=== PATIENT | male | born 1985 | race Hispanic/Latino ===

== ENCOUNTER → 2020-01-16 | Outpatient (CLI) | payer BC ==
--- NOTE | 2020-01-16 14:51 | Diagnostic Imaging Report ---
EXAM: Gallbladder Ultrasound INDICATION: ^[id number] ^[id number] ^RUQ PAIN COMPARISON: None. TECHNIQUE: Transverse and longitudinal images of the gallbladder were obtained. FINDINGS: Liver: 15.2 cm in length at the costal margin, normal. Normal echogenicity. No discrete mass. Gallbladder: Stones/Sludge: None Wall: 0.2 cm Appearance: No wall thickening, pericholecystic fluid or hydrops. Sonographic Norman's Sign: Negative Bile Ducts: Intrahepatic Ducts: No dilatation Extrahepatic Ducts: Common bile duct measures 0.3 cm, no dilatation Free Fluid: No ascites or pleural effusion Vessels: The IVC and aorta are poorly visualized due to overlying bowel gas. IMPRESSION: Unremarkable right upper quadrant abdominal ultrasound. Signed by: Vincent Wilson MD on 01/16/2020 2:48 PM
== END ==
LOC: US 12:43
PROVIDERS: ATTEND Family Medicine
DX: R10.11 Right upper quadrant pain (principal)
CPT/HCPCS: 76705

== ENCOUNTER 2022-06-01 07:12 | Observation (INO) | payer BC, OTHER ==
[2022-05-30 12:54] LABS: BASOPHILS # (AUTO) 0.1 (0.0-0.1); BASOPHILS % 0.7 % (0.0-1.0); EOSINOPHILS # (AUTO) 0.1 (0.0-0.4); EOSINOPHILS % 1.5 % (0.0-6.0); HEMATOCRIT 42.3 % (38.2-49.6); LYMPHOCYTES # (AUTO) 1.1 (1.0-3.2); LYMPHOCYTES % 15.8 % (18.0-39.1); MEAN CORPUSCULAR HEMOGLOBIN 31.1 pg (28-32); MEAN CORPUSCULAR HGB CONC 33.1 g/dL (31-35); MONOCYTES # (AUTO) 0.2 (0.2-0.8); MONOCYTES % 3.5 % (4.4-11.3); NEUTROPHILS # (AUTO) 5.3 (2.1-6.9); NEUTROPHILS % 77.9 % (38.7-80.0); PLATELET COUNT 260 x10e3/uL (140-360); RED CELL DISTRIBUTION WIDTH 12.9 % (11.7-14.4)
[2022-05-30 13:06] LABS: INR 0.91; PROTHROMBIN TIME 13.1 seconds (11.9-14.5)
[2022-05-30 13:07] LABS: PARTIAL THROMBOPLASTIN TIME 27.8 seconds (23.8-35.5)
[2022-05-30 13:12] LABS: ANION GAP 16.2 mmol/L (8-16); CALCIUM 8.3 mg/dL (8.4-10.2); CREATININE, SERUM 0.96 mg/dL (0.72-1.25); POTASSIUM 4.2 mmol/L (3.5-5.1)
[~2022-06-01] VITALS: Ht 170.2 cm; Wt 95.7 kg
[~2022-06-01 07:12] MED LIST: DILTIAZEM HCL60 MG PO; FENOFIBRATE134 MG
[2022-06-01] MEDS ORDERED: VICODIN HP 10-1 EAC1 PO (08:05)
[2022-06-01] MEDS ORDERED: ULTRAM50 MG PO (08:05)
[2022-06-01] MEDS ORDERED: Vancomycin IV 1 GM VIAL ONE (08:46)
[2022-06-01] MEDS ORDERED: THROMBIN FOR SOLN 5,000 UNIT VIAL ONE (08:46)
[2022-06-01] MEDS ORDERED: LIDOCAINE 2% /EPINEPHRINE 20 ML SDV INJ ONE (09:22)
[2022-06-01] MEDS ORDERED: OXYCODONE/ACETAMINOPHEN 5-325 1 EACH TABLET PO PRN (12:00)
[2022-06-01] MEDS ORDERED: PROMETHAZINE HCL (IM) 25 MG/ML VIAL IM PRN (12:00)
[2022-06-01] MEDS ORDERED: ZOLPIDEM TARTRATE 5 MG TAB PO PRN (12:00)
[2022-06-01] MEDS ORDERED: ACETAMINOPHEN 325 MG TAB PO PRN (12:00)
[2022-06-01] MEDS ORDERED: CEPACOL SORE THROAT LOZENGES PO PRN (12:00)
[2022-06-01] MEDS ORDERED: MAGNESIUM/ALUMINUM/SIMETHICONE 30 ML UDC PO PRN (12:00)
[2022-06-01] MEDS ORDERED: CARISOPRODOL 350 MG TAB PO PRN (12:00)
[2022-06-01] MEDS ORDERED: MORPHINE SULFATE 5 MG/ML VIAL IM PRN (12:00)
[2022-06-01] MEDS ORDERED: HYDROCODON-ACE1 EA12 PO (12:01)
[2022-06-01] MEDS ORDERED: HYDRALAZINE HCL 20 MG/ML VIAL ONE (12:22)
[2022-06-01] MEDS ORDERED: FENTANYL CITRATE/PF 100MCG/2 ML INJ ONE ×3 (12:29→13:49)
[2022-06-01] MEDS ORDERED: Morphine 2mg Syringe 2 MG/ML SYR ONE (12:53)
[2022-06-01 13:38] VITALS: BP 145/83
[2022-06-01 13:42] VITALS: BP 145/83
[2022-06-01] MEDS ORDERED: MIDAZOLAM HCL 2 MG/2 ML VIAL ONE (13:48)
[2022-06-01] MEDS ORDERED: GLYCOPYRROLATE INJ 0.2 MG/ML VIAL ONE (14:10)
[2022-06-01] MEDS ORDERED: SEVOFLURANE INHAL SOLN 250 ML PEN BTL ONE (14:10)
[2022-06-01] MEDS ORDERED: NEOSTIGMINE 1 MG/ML 10ML VIAL ONE (14:10)
[2022-06-01] MEDS ORDERED: POVIDONE IODINE 0.05% 0.05 % ML PO ONE (14:10)
[2022-06-01] MEDS ORDERED: ONDANSETRON HCL INJ 2MG/ML 2ML 2 MG/ML VIAL ONE (14:10)
[2022-06-01] MEDS ORDERED: DEXAMETHASONE SOD PHOS INJ 4 MG/ML SDV ONE (14:10)
[2022-06-01] MEDS ORDERED: PROPOFOL IV EMULSION 10 MG/ML 20 ML VIAL ONE (14:10)
[2022-06-01] MEDS ORDERED: LIDOCAINE HCL 2% LOCAL INJ 5 ML SDV VIAL INJ ONE (14:10)
[2022-06-01] MEDS: TRAMADOL HCL 50 MG TAB PO SCH (17:06)
[2022-06-01] MEDS: HYDROMORPHONE 2MG/ML 2 MG/ML ML IV PRN (19:39)
[2022-06-01] MEDS: ONDANSETRON HCL INJ 2MG/ML 2ML 2 MG/ML VIAL IV PRN (19:39)
[2022-06-01 20:00] VITALS: BP 136/76
[2022-06-01] MEDS: LACTATED RINGER'S 1,000 ML IV SCH (21:34)
[2022-06-02] VITALS: BP 145/86
[2022-06-02] MEDS: ONDANSETRON HCL INJ 2MG/ML 2ML 2 MG/ML VIAL IV PRN ×2 (01:30→06:16)
[2022-06-02] MEDS: HYDROMORPHONE 2MG/ML 2 MG/ML ML IV PRN ×2 (01:30→06:16)
[2022-06-02 04:00] VITALS: BP 111/73
[2022-06-02] MEDS: LACTATED RINGER'S 1,000 ML IV SCH (04:14)
[2022-06-02 07:52] VITALS: BP 125/77
[2022-06-02] MEDS ORDERED: DILTIAZEM HCL ER 90MG CAPSULE PO SCH (09:00)
[2022-06-02] MEDS: TRAMADOL HCL 50 MG TAB PO SCH (09:08)
== END 2022-06-02 10:20 | disposition home or self-care (01) ==
LOC: OR 07:12 → PACU V 12:00 → MED/SURG 13:22
PROVIDERS: ADMIT Neurological Surgery; ATTEND Neurological Surgery
DX: M50.122 Cervical disc disorder at C5-C6 level with radiculopathy (principal); G47.33 Obstructive sleep apnea (adult) (pediatric); I10 Essential (primary) hypertension; K21.9 Gastro-esophageal reflux disease without esophagitis; E78.00 Pure hypercholesterolemia, unspecified; E78.5 Hyperlipidemia, unspecified; K44.9 Diaphragmatic hernia without obstruction or gangrene; F17.200 Nicotine dependence, unspecified, uncomplicated; Z01.810 Encounter for preprocedural cardiovascular examination; Z01.812 Encounter for preprocedural laboratory examination; Z01.818 Encounter for other preprocedural examination; Z20.822 Contact with and (suspected) exposure to COVID-19
CPT/HCPCS: 0223U; 20931; 22551; 22552; 22845; 36415; 71046; 72040; 80048; 85025; 85610; 85730; 86850; 86900; 88304; 93005; 96360; 96361 ×2; C1713 ×5; C1763; G0378 ×2; J0360; J0690 ×2; J1100; J1170 ×2; J2001 ×2; J2250; J2270; J2405 ×2; J2704; J2710; J3010; J3370; J7121; 76000

== ENCOUNTER → 2024-10-06 | Day surgery (SDC) | payer BC, OTHER ==
[~2024-10-06] MED LIST changes: +HYDROCODON-ACE1 EA12 PO; +LISINOPRIL10 MG PO; +METFORMIN HCL500 MG PO; +OMEPRAZOLE40 MG PO; +ULTRAM50 MG PO; +VICODIN HP 10-1 EAC1 PO
[2024-10-06] MEDS: LACTATED RINGER'S 1,000 ML ONE (10:25)
[2024-10-06 13:25] VITALS: TEMP 97.3
[2024-10-06 13:55] VITALS: BP 138/76; PULSE 78; RESP 16; O2SAT 98
[2024-10-06 14:45] LABS: ALBUMIN 4.1 g/dL (3.5-5.0); BILIRUBIN,DIRECT 0.1 mg/dL (0.0-0.5); BILIRUBIN,TOTAL 0.5 mg/dL (0.2-1.2); TOTAL PROTEIN 6.8 g/dL (6.5-8.1)
== END | disposition home or self-care (01) ==
LOC: OR 10:11
PROVIDERS: ATTEND Internal Medicine Gastroenterology
DX: K29.60 Other gastritis without bleeding (principal); I85.00 Esophageal varices without bleeding; K20.90 Esophagitis, unspecified without bleeding; K21.9 Gastro-esophageal reflux disease without esophagitis; K44.9 Diaphragmatic hernia without obstruction or gangrene; R19.5 Other fecal abnormalities; Z71.3 Dietary counseling and surveillance; I10 Essential (primary) hypertension; Z71.89 Other specified counseling; E78.5 Hyperlipidemia, unspecified; E11.9 Type 2 diabetes mellitus without complications; R42 Dizziness and giddiness; F17.210 Nicotine dependence, cigarettes, uncomplicated; F10.90 Alcohol use, unspecified, uncomplicated; Z01.810 Encounter for preprocedural cardiovascular examination; Z79.84 Long term (current) use of oral hypoglycemic drugs; Z79.899 Other long term (current) drug therapy; Z68.32 Body mass index [BMI] 32.0-32.9, adult; Z87.19 Personal history of other diseases of the digestive system; Z80.0 Family history of malignant neoplasm of digestive organs
CPT/HCPCS: 36415; 43239; 80076; 82948; 93005; J2470; J7121

== ENCOUNTER → 2024-10-08 | Outpatient (REF) | payer OTHER | LOC: US 11:37 | PROVIDERS: ATTEND Internal Medicine Gastroenterology | DX: K29.60 Other gastritis without bleeding (principal) | CPT/HCPCS: 76705 ==